=== PATIENT | male | born 1955 | race Two or more races ===

== ENCOUNTER 2021-04-24 22:47 | Emergency (ER) | payer MEDICARE ==
[~2021-04-24] VITALS: Ht 185.4 cm; Wt 95.0 kg
[2021-04-24 22:49] VITALS: BP 124/84
[2021-04-25] MEDS ORDERED: NALO4SPR BOTHNSTRLS (01:01)
== END 2021-04-25 01:33 | disposition home or self-care (01) ==
LOC: ER 22:47
DX: T40.2X1A Poisoning by other opioids, accidental (unintentional), initial encounter (principal); I10 Essential (primary) hypertension; Y92.9 Unspecified place or not applicable
CPT/HCPCS: 99283